=== PATIENT | female | born 1990 | race Caucasian/White ===

== ENCOUNTER 2023-08-31 10:49 | Day surgery (SDC) | payer OTHER ==
[2023-08-31] MEDS ORDERED: hydrALAZINE 20 MG/ML VIAL SLOW IVP PRN (11:16)
[2023-08-31 11:47] LABS: #Eosinphils 0.1 10x3/uL (0.0-0.5); #Monocytes 0.6 10x3/uL (0.0-1.1); #Neutrophils 8.6 10x3/uL (1.5-8.4); %Basophils 0.2 % (0.0-2.0); %Eosinophils 0.4 % (0.0-6.0); %Lymphocytes 17.6 % (18.0-47.0); %Monocytes 5.3 % (0.0-10.0); %Neutrophils 76.2 % (40.0-75.0); Hematocrit 34.2 % (34.9-44.5); Hemoglobin 12.1 g/dL (12.0-15.5); Mean Corpuscular HGB CONC 35.4 g/dL (32.0-36.0); Mean Corpuscular Volume 90.5 fl (81.6-98.3); Mean Platelet Volume 10.9 fl (7.4-10.4); Platelet Count 201 10x3/uL (150-450); RBC Distribution Width 12.3 % (11.5-14.5); Red Blood Cell (RBC) Count 3.78 10x6/uL (3.90-5.03); White Blood Cell (WBC) Count 11.2 10x3/uL (3.5-10.5)
[2023-08-31 12:22] LABS: Creatinine, Urine 24.93 mg/dL (47-110); Protein, Urine Random Quant Less than 10 mg/dL (1-14)
[2023-08-31 12:25] LABS: ALT (SGPT) 9 U/L (8-55); AST (SGOT) 14 U/L (5-34); Albumin 3.6 g/dL (3.5-5.0); Alkaline Phosphatase 122 U/L (40-110); Anion Gap 11 mmol/L (10-20); BUN (Urea Nitrogen) 8 mg/dL (7.0-18.7); Bilirubin, Total 0.2 mg/dL (0.2-1.2); Calc. Creatinine Clearance 0 mL/min (70-130); Carbon Dioxide 19 mmol/L (22-29); Chloride 108 mmol/L (98-107); Estimated GFR 119; Globulin 2.9 g/dL (2.4-3.5); Glucose 80 mg/dL (70-105); Potassium 3.8 mmol/L (3.5-5.1); Protein, Total 6.5 g/dL (6.0-8.3); Sodium 134 mmol/L (136-145)
[2023-08-31 13:58] VITALS: BMI 33.4
== END 2023-08-31 13:20 | disposition home or self-care (01) ==
LOC: CSHLD/OP 10:49
PROVIDERS: ATTEND Obstetrics & Gynecology
DX: O47.1 False labor at or after 37 completed weeks of gestation (principal); Z79.899 Other long term (current) drug therapy; Z90.89 Acquired absence of other organs; Z3A.37 37 weeks gestation of pregnancy
CPT/HCPCS: 36415; 80053; 82570; 84156; 85025; 99283

== ENCOUNTER 2023-09-06 21:20 | Inpatient (IN) | payer OTHER ==
[2023-09-06] MEDS ORDERED: Promethazine HCl 25 MG/ML VIAL IM PRN (22:51)
[2023-09-06] MEDS ORDERED: hydrALAZINE 20 MG/ML VIAL SLOW IVP PRN (22:51)
[2023-09-06] MEDS ORDERED: Diphenoxylate HCl/Atropine Tablet PO PRN (22:51)
[2023-09-06] MEDS ORDERED: Methylergonovine 0.2 MG/ML VIAL IM PRN (22:51)
[2023-09-06] MEDS ORDERED: Carboprost 250 MCG/ML AMP IM PRN (22:51)
[2023-09-06] MEDS ORDERED: Acetaminophen 500 MG TAB PO PRN (22:51)
[2023-09-06] MEDS ORDERED: HYDROcodone/Acetaminophen 5/325 mg Tablet PO PRN (22:51)
[2023-09-06] MEDS ORDERED: Oxytocin 30 units/NS 500 ML 500 ML IV SCH (23:00)
[2023-09-06] MEDS ORDERED: Lactated Ringer's 1,000 ML IV SCH (23:00)
[2023-09-06 23:19] LABS: ALT (SGPT) 12 U/L (8-55); AST (SGOT) 11 U/L (5-34); Albumin 3.5 g/dL (3.5-5.0); Alkaline Phosphatase 132 U/L (40-110); Anion Gap 13 mmol/L (10-20); BUN (Urea Nitrogen) 10 mg/dL (7.0-18.7); Bilirubin, Total 0.2 mg/dL (0.2-1.2); Calc. Creatinine Clearance 0 mL/min (70-130); Calcium 8.8 mg/dL (7.8-10.44); Carbon Dioxide 20 mmol/L (22-29); Chloride 108 mmol/L (98-107); Estimated GFR 114; Globulin 2.5 g/dL (2.4-3.5); Glucose 102 mg/dL (70-105); Sodium 137 mmol/L (136-145)
[2023-09-06 23:21] LABS: Hematocrit 33.2 % (34.9-44.5); Hemoglobin 11.7 g/dL (12.0-15.5); Mean Corpuscular HGB CONC 35.2 g/dL (32.0-36.0); Mean Corpuscular Hemoglobin 31.5 pg (27.0-33.0); Mean Corpuscular Volume 89.2 fl (81.6-98.3); Mean Platelet Volume 11.7 fl (7.4-10.4); Platelet Count 199 10x3/uL (150-450); RBC Distribution Width 12.5 % (11.5-14.5); Red Blood Cell (RBC) Count 3.72 10x6/uL (3.90-5.03); White Blood Cell (WBC) Count 10.1 10x3/uL (3.5-10.5)
[2023-09-06 23:38] LABS: HBSAg Index 0.17 S/CO (0-0.99); Hep B Surf Ag Non-Reactive S/CO (NonReactive); Syphilis Antibody Nonreactive (Nonreactive); Syphilis Antibody Index 0.02 S/CO (<1.00 Non-Reactive)
[2023-09-06] MEDS: Misoprostol 100 MCG TAB VAG SCH (23:55)
[2023-09-07 01:27] LABS: Creatinine, Urine 44.73 mg/dL (47-110); Protein, Urine Random Quant Less than 10 mg/dL (1-14)
[2023-09-07] MEDS: Penicillin G Potassium 5 MILL.UNITS in Sodium Chloride 0.9% 100 ML IVPB SCH (03:00)
[2023-09-07] MEDS: Oxytocin 30 units/NS 500 ML 500 ML IV SCH (04:10)
[2023-09-07] MEDS: Penicillin G 2.5 MILL.units 2.5 MILL.UNITS in Premix 1 BAG IVPB SCH (07:00)
[2023-09-07 07:09] VITALS: BMI 34.4
[2023-09-07 09:53] LABS: HIV (1/2) Antibody/Antigen Non-Reactive (NonReactive); HIV 1/2 INDEX 0.06 S/CO (<1.00)
[2023-09-07] MEDS: Ondansetron PF 4 MG/2 ML Vial IVP PRN (11:11)
[2023-09-07] MEDS: fentaNYL 50 mcg/mL 1 mL Vial SLOW IVP PRN (11:11)
[2023-09-07] MEDS: Lidocaine 1% (PF) 30 ML VIAL SC PRN (13:20)
[2023-09-07] MEDS: Misoprostol 200 MCG TAB PR PRN (13:23)
[2023-09-07 13:36] LABS: Analyzer IN Cardio CS NICU; RapidComm Collect By OR NURSE
[2023-09-07 13:37] LABS: Analyzer IN Cardio CS NICU; RapidComm Collect By OR NURSE; pH (Cord, venous) 7.309 (7.250-7.350)
[2023-09-07] MEDS: Ibuprofen 800 MG TAB PO PRN (15:12)
[2023-09-07] MEDS ORDERED: Benzocaine-Menthol 82.5 ML CAN TOP PRN (17:41)
[2023-09-07] MEDS ORDERED: hydrALAZINE 20 MG/ML VIAL SLOW IVP PRN (17:41)
[2023-09-07] MEDS ORDERED: Preparation H Ointment 28 GM TUBE PR PRN (17:41)
[2023-09-07] MEDS ORDERED: diphenhydrAMINE 25 MG CAP PO PRN (17:41)
[2023-09-07] MEDS ORDERED: Ondansetron PF 4 MG/2 ML Vial IVP PRN (17:41)
[2023-09-07] MEDS ORDERED: Oxytocin 30 units/NS 500 ML 500 ML IV SCH (17:41)
[2023-09-07] MEDS ORDERED: Bisacodyl 10 MG SUPP PR PRN (17:41)
[2023-09-07] MEDS ORDERED: Milk Of Magnesia 30 ML UDCUP PO PRN (17:41)
[2023-09-07] MEDS ORDERED: HYDROcodone/Acetaminophen 5/325 mg Tablet PO PRN (17:41)
[2023-09-07] MEDS ORDERED: Boostrix 0.5 ML (Tdap) VIAL (>/=7 yrs of age) IM ONE (17:41)
[2023-09-07] MEDS: Ferrous Sulfate 325 MG TAB PO SCH (18:07)
[2023-09-07] MEDS: Docusate 100 MG CAP PO SCH (21:36)
[2023-09-07] MEDS: Ibuprofen 800 MG TAB PO SCH (21:36)
[2023-09-08] MEDS: HYDROcodone/Acetaminophen 5/325 mg Tablet PO PRN (05:50)
[2023-09-08] MEDS: Ferrous Sulfate 325 MG TAB PO SCH (07:40)
[2023-09-09 07:50] VITALS: BP 115/68; TEMP 98.1
[2023-09-09 18:36] LABS: HIV-1 Quantitative, RNA PCR <20 copies/mL (.)
== END 2023-09-09 11:25 | disposition home or self-care (01) | DRG 807 ==
LOC: CSHERS 21:20 → CSHLD/OP 22:50 → CSHLD 22:51 → EDSTATUS 23:32 → CSHLD/OP 23:33 → CSHPED 09-07 16:15
PROVIDERS: ADMIT Obstetrics & Gynecology; ATTEND Obstetrics & Gynecology
PROC: 10D07Z8 Extraction of Products of Conception, Other, Via Natural or Artificial Opening (ICD-10-PCS; principal; 2023-09-07)
PROC: 3E033VJ Introduction of Other Hormone into Peripheral Vein, Percutaneous Approach (ICD-10-PCS; 2023-09-07)
PROC: 0W8NXZZ Division of Female Perineum, External Approach (ICD-10-PCS; 2023-09-07)
DX: O14.94 Unspecified pre-eclampsia, complicating childbirth (principal); Z37.0 Single live birth; O13.4 Gestational [pregnancy-induced] hypertension without significant proteinuria, complicating childbirth; Z3A.38 38 weeks gestation of pregnancy; Z20.6 Contact with and (suspected) exposure to human immunodeficiency virus [HIV]; O70.1 Second degree perineal laceration during delivery
CPT/HCPCS: 36415; 80053; 82570; 82805; 84156; 85027; 86780; 86850; 86900; 86901; 87340; 87389; 87536; 99285; J2001; J2405; J2540; J2550; J2590; J3010; J3490; J7120

== ENCOUNTER → 2023-09-06 | Day surgery (SDC) | payer OTHER | LOC: CSHLD/OP 21:23 | PROVIDERS: ATTEND Obstetrics & Gynecology | DX: O16.3 Unspecified maternal hypertension, third trimester (principal); Z3A.38 38 weeks gestation of pregnancy ==

== ENCOUNTER 2023-09-17 13:24 | Inpatient (IN) | payer OTHER ==
[2024-09-06 05:43] VITALS: BMI 33.8
[2024-09-06] MEDS ORDERED: Lactated Ringer's 1,000 ML IV SCH (05:54)
[2024-09-06] MEDS ORDERED: Ondansetron PF 4 MG/2 ML Vial IVP PRN ×4 (05:54→20:48)
[2024-09-06] MEDS ORDERED: Promethazine HCl 25 MG/ML VIAL IM PRN ×3 (05:54→20:48)
[2024-09-06] MEDS ORDERED: HYDROcodone/Acetaminophen 5/325 mg Tablet PO PRN ×2 (05:54)
[2024-09-06] MEDS ORDERED: hydrALAZINE 20 MG/ML VIAL SLOW IVP PRN ×2 (05:54→20:48)
[2024-09-06] MEDS ORDERED: Ibuprofen 800 MG TAB PO PRN (05:54)
[2024-09-06] MEDS ORDERED: Oxytocin 30 units/NS 500 ML 500 ML IV SCH ×2 (05:54→20:48)
[2024-09-06] MEDS ORDERED: Lidocaine 1% (PF) 30 ML VIAL SC PRN (05:54)
[2024-09-06] MEDS ORDERED: fentaNYL 50 mcg/mL 1 mL Vial SLOW IVP PRN (05:54)
[2024-09-06 06:28] LABS: Hematocrit 33.5 % (34.9-44.5); Hemoglobin 11.5 g/dL (12.0-15.5); Mean Corpuscular HGB CONC 34.3 g/dL (32.0-36.0); Mean Corpuscular Hemoglobin 30.7 pg (27.0-33.0); Mean Corpuscular Volume 89.6 fL (81.6-98.3); Mean Platelet Volume 10.6 fL (7.4-10.4); Platelet Count 188 10x3/uL (150-450); RBC Distribution Width 12.6 % (11.5-14.5); Red Blood Cell (RBC) Count 3.74 10x6/uL (3.90-5.03)
[2024-09-06] MEDS: Oxytocin 30 units/NS 500 ML 500 ML IV SCH (06:43)
[2024-09-06 07:12] LABS: Syphilis Antibody Nonreactive (Nonreactive); Syphilis Antibody Index 0.03 S/CO (<1.00 Non-Reactive)
[2024-09-06] MEDS: Penicillin G Potassium 5 MILL.UNITS VIAL ONE (07:13)
[2024-09-06] MEDS: Penicillin G Potassium 5 MILL.UNITS in Sodium Chloride 0.9% 100 ML IVPB SCH (07:13)
[2024-09-06 07:14] LABS: HBsAg Index 0.16 S/CO (0-0.99); HIV (1/2) Antibody/Antigen Non-Reactive (NonReactive); HIV 1/2 INDEX 0.14 S/CO (<1.00); Hep B Surf Ag - L&D Non-Reactive S/CO (NonReactive)
[2024-09-06] MEDS ORDERED: Penicillin G 2.5 MILL.units 2.5 MILL.UNITS in Premix 1 BAG IVPB SCH (07:15)
[2024-09-06] MEDS: Penicillin G 2.5 MILL.units 2.5 MILL.UNITS in Premix 1 BAG IVPB SCH (11:12)
[2024-09-06] MEDS: CEFAZOLIN 2 GM VIAL ONE (17:07)
[2024-09-06] MEDS: Azithromycin 500 MG VIAL ONE (17:07)
[2024-09-06] MEDS ORDERED: Morphine 4 MG/ML VIAL SLOW IVP PRN (18:00)
[2024-09-06] MEDS ORDERED: Communication Order-Pharmacy FS SCH (18:00)
[2024-09-06] MEDS ORDERED: diphenhydrAMINE 50 MG/ML VIAL IVP PRN (18:00)
[2024-09-06] MEDS ORDERED: Meperidine HCl/PF 25 MG (1 mL) VIAL SLOW IVP PRN (18:00)
[2024-09-06] MEDS ORDERED: Naloxone HCl 0.4 mg/ml Vial IVP PRN ×2 (18:00)
[2024-09-06] MEDS ORDERED: Moisturizing Cream (Eucerin) 113 GM JAR TOP PRN (18:00)
[2024-09-06] MEDS ORDERED: Ketorolac Tromethamine 30 MG (1 mL) VIAL IVP SCH (18:00)
[2024-09-06] MEDS ORDERED: Naloxone HCl 0.4 mg/ml Vial IV PRN (18:00)
[2024-09-06] MEDS: fentaNYL 50 mcg/mL 1 mL Vial SLOW IVP PRN ×2 (19:22→21:15)
[2024-09-06] MEDS ORDERED: diphenhydrAMINE 25 MG CAP PO PRN (20:48)
[2024-09-06] MEDS ORDERED: Lanolin Ointment 7 GM TUBE TOP PRN (20:48)
[2024-09-06] MEDS ORDERED: Bisacodyl 10 MG SUPP PR PRN (20:48)
[2024-09-06] MEDS ORDERED: Zolpidem Tartrate 5 MG TAB PO PRN (20:48)
[2024-09-06] MEDS: fentaNYL/Ropivacaine Epidural 0 ML ONE (22:03)
[2024-09-06] MEDS: Morphine PF 10 MG/10 ML VIAL ONE (22:03)
[2024-09-06] MEDS: Ondansetron PF 4 MG/2 ML Vial ONE (22:03)
[2024-09-06] MEDS: Dexamethasone 10 MG/ML VIAL ONE (22:03)
[2024-09-06] MEDS: Oxytocin 10 UNITS/ML VIAL ONE (22:04)
[2024-09-06] MEDS: PHENYLEPHRINE-NS 100 MCG/ML 10 ML SYRINGE ONE (22:04)
[2024-09-06] MEDS: Docusate 100 MG CAP PO SCH (22:04)
[2024-09-06] MEDS: Ferrous Sulfate 325 MG TAB PO SCH (22:04)
[2024-09-07] MEDS: Ketorolac Tromethamine 30 MG (1 mL) VIAL IVP PRN (00:03)
[2024-09-07 05:10] LABS: Hemoglobin 11.1 g/dL (12.0-15.5); Mean Corpuscular HGB CONC 34.7 g/dL (32.0-36.0); Mean Corpuscular Hemoglobin 31.6 pg (27.0-33.0); Mean Corpuscular Volume 91.2 fL (81.6-98.3); Platelet Count 214 10x3/uL (150-450); RBC Distribution Width 12.3 % (11.5-14.5); Red Blood Cell (RBC) Count 3.51 10x6/uL (3.90-5.03); White Blood Cell (WBC) Count 20.91 10x3/uL (3.5-10.5)
[2024-09-07] MEDS ORDERED: HYDROcodone/Acetaminophen 5/325 mg Tablet PO PRN (07:00)
[2024-09-07] MEDS: Prenatal Vitamin 1 TAB PO SCH (07:32)
[2024-09-07] MEDS ORDERED: Bupivacaine 0.25% HCL 30 ML VIAL ONE (10:00)
[2024-09-07] MEDS ORDERED: Lidocaine 2% MPF 10 ML AMP (For Epidural Use) ONE (10:00)
[2024-09-07] MEDS: HYDROcodone/Acetaminophen 5/325 mg Tablet PO PRN (13:12)
[2024-09-07] MEDS: Simethicone Chewable 80 MG TAB PO PRN (13:13)
[2024-09-07] MEDS: Ibuprofen 800 MG TAB PO SCH (23:50)
[2024-09-08] MEDS: Boostrix 0.5 ML (Tdap) VIAL (>/=7 yrs of age) IM ONE (15:41)
[2024-09-09 08:22] VITALS: BP 140/85; TEMP 97.2
== END 2024-09-09 18:05 | disposition home or self-care (01) | DRG 788 ==
LOC: CSHLD 09-06 05:36 → CSHPP 09-06 20:50
PROVIDERS: ADMIT Obstetrics & Gynecology; ATTEND Obstetrics & Gynecology
PROC: 10H07YZ Insertion of Other Device into Products of Conception, Via Natural or Artificial Opening (ICD-10-PCS; principal; 2024-09-06)
PROC: 10D00Z1 Extraction of Products of Conception, Low, Open Approach (ICD-10-PCS; 2024-09-06)
DX: O41.03X0 Oligohydramnios, third trimester, not applicable or unspecified (principal); O36.5930 Maternal care for other known or suspected poor fetal growth, third trimester, not applicable or unspecified; O99.824 Streptococcus B carrier state complicating childbirth; Z3A.37 37 weeks gestation of pregnancy; Z37.0 Single live birth; O76 Abnormality in fetal heart rate and rhythm complicating labor and delivery; Z79.899 Other long term (current) drug therapy
CPT/HCPCS: 36415; 51702; 85027; 86780; 86850; 86900; 86901; 87340; 87389; J0456; J0665; J1100; J1885; J2274; J2405; J2540; J2590; J3010